=== PATIENT | male | born 1970 | race African-American/Black ===

== ENCOUNTER 2019-10-13 00:26 | Inpatient (IN) | payer MEDICAID ==
[~2019-10-13] VITALS: Ht 188 cm; Wt 82.6 kg
[2019-10-13] MEDS ORDERED: HYDROCODONE/APAP 5-325MG TABLET PO ONE (01:30)
[2019-10-13] MEDS ORDERED: HYDROCODONE/APAP 5-325MG TABLET ONE (01:31)
[2019-10-13 01:45] LABS: CREATININE 0.9 mg/dL (0.6-1.3); POTASSIUM 3.5 mmol/L (3.5-5.1)
[2019-10-13 01:50] LABS: BILIRUBIN,DIRECT 0.1 mg/dL (0.0-0.2); BILIRUBIN,TOTAL 0.5 mg/dL (0.2-1.0); TOTAL PROTEIN, SERUM 6.3 g/dL (6.4-8.2)
[2019-10-13 01:59] LABS: BASOPHILS % (AUTO) 0.4 % (0.0-2.0); EOSINOPHILS # (AUTO) 0.1 K/uL (0.0-0.7); EOSINOPHILS % (AUTO) 0.9 % (0.0-7.0); HEMATOCRIT 36.2 % (36.7-47.1); HEMOGLOBIN 11.8 g/dL (12.5-16.3); LYMPHOCYTES # (AUTO) 1.3 K/uL (20.0-40.0); LYMPHOCYTES % (AUTO) 15.5 % (20.5-51.5); MEAN CORPUSCULAR HEMOGLOBIN 27.3 uug (23.8-33.4); MEAN CORPUSCULAR HGB CONC 33 g/dL (32.5-36.3); MEAN CORPUSCULAR VOLUME 83.7 fL (73.0-96.2); MONOCYTES # (AUTO) 0.6 K/uL (2.0-10.0); MONOCYTES % (AUTO) 6.6 % (0.0-11.0); NEUTROPHILS # (AUTO) 6.6 K/uL (1.8-8.9); NEUTROPHILS % (AUTO) 76.6 % (38.5-71.5); PLATELET COUNT (AUTO) 236 K/uL (152-348); RED BLOOD CELL COUNT(AUTO) 4.33 MIL/uL (4.06-5.63); WHITE BLOOD COUNT (AUTO) 8.6 K/uL (3.6-10.2)
--- NOTE | 2019-10-13 03:07 | NUR ---
EPIC paged for panel call.
--- NOTE | 2019-10-13 03:19 | NUR ---
Pt. admitted to Med/Surg , under care of Charito Randle NP. Diagnosis: Rectal Prolapse. Belongs List completed
[2019-10-13] MEDS ORDERED: ACETAMINOPHEN 325 MG TABLET PO PRN (03:30)
[2019-10-13] MEDS ORDERED: Z GUARD REMEDY PASTE 57 GM TUBE TOP PRN (03:30)
[2019-10-13] MEDS ORDERED: MAGNESIUM HYDROXIDE 30 ML LIQUID UDC PO PRN (03:30)
[2019-10-13] MEDS ORDERED: ONDANSETRON 4 MG/2 ML VIAL IV PRN (03:30)
--- NOTE | 2019-10-13 04:00 | NUR ---
RECEIVED PATIENT VIA GURNEY FROM ER. PATIENT IS A/O X4. LEFT THUMB SECURED WITH SPLINT/MANDEEP BANDAGE. NEURO-CHECKS WNL. PROLAPSED RECTUM NOTED, SCANT BLOOD NOTED ON DANNI. PATIENT C/O OF MODERATED PAIN. H/L INTACT AND PATENT, NOTED TO RIGHT AC #20 GAUGE. ORIENTED TO ROOM AND CALL LIGHT. CALL LIGHT IN REACH. ALL NEEDS ATTENDED. WILL CONTINUE TO MONITOR AND ASSESS.
[2019-10-13] MEDS: IV NS 1000 ML 1,000 ML IV PRN (04:15)
[2019-10-13] MEDS: HYDROCODONE/APAP 5-325MG TABLET PO PRN ×3 (04:22→17:01)
[2019-10-13 05:44] VITALS: BP 121/88
--- NOTE | 2019-10-13 06:26 | NUR ---
PATIENT ASLEEP IN BED. RESTING WELL. IVF INFUSING WELL. VS WNL. CALL LIGHT IN REACH. ALL NEEDS ATTENDED. WILL CONTINUE TO MONITOR. ALL NEEDS ATTENDED. WILL CONTINUE TO MONITOR.
[2019-10-13] MEDS: PANTOPRAZOLE SODIUM 40 MG TABLET.DR PO SCH (06:32)
--- NOTE | 2019-10-13 07:30 | NUR ---
RECEIVED PATIENT AWAKE ALERT AND ORIENTED STATED THAT HE FELT LIKE HE NEEDED TO MOVE HIS BOWEL BUT IS UNABLE WILL INFORM THE HYPERBARIC NURSE FOR MAY BE A LAXATIVE FOR HIM BECAUSE HIS CERRENT ORDER IS FOR HS ONLY CALL LIGHTS AND HIS PERSONAL BELONGINGS PLACED WITHIN EASY REACH WILL CONTINUE TO OBSERVE
--- NOTE | 2019-10-13 10:00 | NUR ---
IV SITE OUT PATIENT STATED ACCIDENTLY PULLED OUT BUT REFUSED TO HAVE IT REINSERTED AT THIS TIME.
[2019-10-13] MEDS: MAGNESIUM HYDROXIDE 30 ML LIQUID UDC PO PRN (11:44)
--- NOTE | 2019-10-13 11:45 | NUR ---
PATIENT C/O PAIN AND STILL UNABLE TO MOVE HIS BOWELS AND HAVING LOTS OF PAIN MEDICATED WITH MILK OF MAG AND NORCO ORDERED DR DUNNE NOTIFIED STATED THAT HE CALLED DR RAMA COLLIER TO SEE HIM TODAY
[2019-10-13 13:00] VITALS: BP 132/94
[2019-10-13 16:00] VITALS: BP 142/95
--- NOTE | 2019-10-13 16:00 | NUR ---
PATIENT FINALLY ALLOWED ME TO REINSERT HIS IV SITED REINSERTED TO HIS RIGHT UPPER ARM WITH GAUGE 20 WITH ONE ATTEMPT AND CONTINUED WITH HIS IVF ORDERED.
--- NOTE | 2019-10-13 17:00 | NUR ---
MEDICATED FOR PAIN WITH NORCO STILL C/O RECTAL PAIN WITH RECTAL PROLAPSE STILL VISIBLE WITH SOME BLEEDING AWAITING FOR GI TO SEE PATIENT TONITE PER DR DUNNE.
[2019-10-13] MEDS ORDERED: MORPHINE SULFATE 2 MG/1 ML DISP.SYRIN IV PRN (17:45)
--- NOTE | 2019-10-13 18:00 | NUR ---
MEDICATION IS HELPFUL ORDERED MADE COMFORTABLE AND WILL CONTINUE TO OBSERVE.
--- NOTE | 2019-10-13 19:00 | NUR ---
PATIENT ALERT ORIENTED, NO SOB NO CHEST PAIN. CONT ON PAIN MANAGEMENT R THUMB, PATIENT ABLE TO USE TOILET FOR BOWEL AND BLADDER ELIMINATIONS, CONT TO MONITOR.
[2019-10-13 19:48] VITALS: BP 121/85
[2019-10-14] MEDS: IV NS 1000 ML 1,000 ML IV PRN (04:20)
[2019-10-14 05:27] VITALS: BP 137/97
--- NOTE | 2019-10-14 05:49 | NUR ---
PATIENT ALERT ORIENTED, NO SOB NO CHEST PAIN. PATIENT DENIES PAIN AT THIS TIME. PATIENT HAVE SLIGHT BLEEDING IN PROLAPSE RECTUM WHEN PATIENT DEFACATE. PATIENT SHOWN TO STAFF A PIECE OF LOOK LIKE SKIN TISSUE CAME FROM THE RECTAL PROLAPSE, PATIENT HAS NO FURTHER BLEEDING NOTED. TAUGHT PATIENT TO KEEP AFFTECTED AREA CLEAN AND MOIST ALL THE TIME, PATIENT STATED THAT AFFECTED SITE WAS ALWAYS WET, CONT TO MONITOR.
[2019-10-14] MEDS: PANTOPRAZOLE SODIUM 40 MG TABLET.DR PO SCH ×2 (06:24→08:34)
[2019-10-14 06:34] LABS: BASOPHILS % (AUTO) 0.6 % (0.0-2.0); EOSINOPHILS % (AUTO) 0.6 % (0.0-7.0); HEMATOCRIT 35.1 % (36.7-47.1); HEMOGLOBIN 11.5 g/dL (12.5-16.3); LYMPHOCYTES # (AUTO) 1.3 K/uL (20.0-40.0); LYMPHOCYTES % (AUTO) 15.7 % (20.5-51.5); MEAN CORPUSCULAR HEMOGLOBIN 27.1 uug (23.8-33.4); MEAN CORPUSCULAR HGB CONC 33 g/dL (32.5-36.3); MEAN CORPUSCULAR VOLUME 82.8 fL (73.0-96.2); MONOCYTES # (AUTO) 0.4 K/uL (2.0-10.0); MONOCYTES % (AUTO) 5.4 % (0.0-11.0); NEUTROPHILS # (AUTO) 6.3 K/uL (1.8-8.9); NEUTROPHILS % (AUTO) 77.7 % (38.5-71.5); PLATELET COUNT (AUTO) 244 K/uL (152-348); RED BLOOD CELL COUNT(AUTO) 4.24 MIL/uL (4.06-5.63); WHITE BLOOD COUNT (AUTO) 8.1 K/uL (3.6-10.2)
[2019-10-14 06:43] LABS: CREATININE 1.2 mg/dL (0.6-1.3); MAGNESIUM 1.9 mg/dL (1.8-2.4); POTASSIUM 3.5 mmol/L (3.5-5.1)
--- NOTE | 2019-10-14 06:45 | NUR ---
PATIENT WAS OFFERED TO HELP HIM MOISTENED HIS RECTAL PROLAPSE BUT PATIENT REFUSED, STATED "IT'S ALWAYS WET ANYWAY", PATIENT STILL HAS SLIGHT BLEEDING ON PROLAPSE RECTUM WHEN GOING TO BATHROOM, CONT TO MONITOR.
[2019-10-14 06:52] LABS: THYROID STIMULATING HORMONE 2.952 mIU/mL (0.358-3.740)
--- NOTE | 2019-10-14 08:00 | NUR ---
RECEIVED PT RESTING COMFORTABLY IN BED SUPINE. NO ACUTE DISTRESS OR SOB NOTED. PT'S PAIN MANAGED WITH MEDICATION. CALL LIGHT WITHIN REACH. BED LOCKED AND IN LOW POSITION. WILL CONTINUE TO MONITOR FOR SAFETY AND COMFORT.
--- NOTE | 2019-10-14 09:20 | NUR ---
DR ONTIVEROS WAS CALLED AND REMINDED OF GI CONSULT. DR ACKNOWLEDGES PT. DR STATED HE WILL BE IN THIS AFTERNOON FOR EVAL AND CONSULT.
[2019-10-14] MEDS: DOCUSATE SODIUM 250 MG CAPSULE PO SCH ×2 (10:12→20:22)
--- NOTE | 2019-10-14 10:28 | NUR ---
DR RODRIGUEZ WAS CONTACTED DUE TO PT'S PROGRESSIVELY INCREASING RECTAL PAIN. DR RODRIGUEZ ORDERED TO DC MORPHINE AND GIVE DILAUDID.
--- NOTE | 2019-10-14 10:45 | NUR ---
PT REFUSES DILAUDID AT THIS TIME. PAIN IS 0. PT STATED THAT HE DID NOT COME TO THE HOSPITAL TO TAKE DRUGS.
[2019-10-14 11:46] VITALS: BP 115/86
--- NOTE | 2019-10-14 12:00 | NUR ---
PT RESTING IN BED. PT SEEMS AGITATED. PT DENIES PAIN AT THIS TIME. NO ACUTE DISTRESS OR SOB NOTED. PT STATES FEELING WELL. ANXIOUSLY AWAITING ARRIVAL OF DR ONTIVEROS. WILL CONTINUE TO MONITOR.
--- NOTE | 2019-10-14 15:40 | NUR ---
PT REFUSED PICTURES. PT STATED HE DOES NOT WANT TO BE ON DISPLAY. EXPLAINED THAT THIS IS PRIVATE INFORMATION WHICH WILL ONLY BE SEEN BY STAFF INVOLVED.
[2019-10-14 16:00] VITALS: BP 132/95
--- NOTE | 2019-10-14 16:00 | NUR ---
DR ONTIVEROS EVALUATED PT. DR ONTIVEROS TO REPORT EVALUATION TO DR RODRIGUEZ. NO NEW ORDERS AT THIS TIME.
[2019-10-14] MEDS: MAGNESIUM HYDROXIDE 30 ML LIQUID UDC PO PRN (16:37)
[2019-10-14] MEDS: HYDROMORPHONE 1 MG/1 ML DISP.SYRIN IV PRN (16:41)
--- NOTE | 2019-10-14 18:00 | NUR ---
PT RESTING IN BED. NO ACUTE DISTRESS OR SOB NOTED. PT'S PAIN MANAGED WITH MEDICATION. DR ONTIVEROS EVALUATED PT AND WILL COMMUNICATE WITH DR RODRIGUEZ. NO NEW ORDERS AT THIS TIME. NO ACUTE DISTRESS OR SOB NOTED. BED LOCKED AND IN LOW POSITION. WILL ENDORSE TO INCOMING SHIFT.
--- NOTE | 2019-10-14 19:15 | NUR ---
Received patient in bed, resting. AO x 3; verbalizes pain level of 7 but refuses to take pain medication. IV in ADOLFO patent and intact. Immediate needs attended. Safety protocols in place. Will continue to monitor patient.
[2019-10-14 19:58] VITALS: BP 141/101
[2019-10-14] MEDS ORDERED: MIRALAX 17 GM POWD.PACK PO PRN (22:30)
[2019-10-15] MEDS: IV NS 1000 ML 1,000 ML IV PRN (03:23)
[2019-10-15 05:00] VITALS: BP 131/94
[2019-10-15] MEDS: HYDROMORPHONE 1 MG/1 ML DISP.SYRIN IV PRN (05:13)
--- NOTE | 2019-10-15 07:08 | NUR ---
NO ACUTE CHANGE IN PATIENT CONDITION THROUGHOUT SHIFT. PATIENT STATED HE "WAS ABLE TO PUSH RECTUM BACK INSIDE". AFTER THAT, PATIENT REQUESTED PAIN MEDICATION AND PATIENT WAS MEDICATED WITH DILAUDID. VITAL SIGNS WITHIN NORMAL. IMMEDIATE NEEDS ATTENDED WILL ENDORSE ACCORDINGLY.
[2019-10-15] MEDS: DOCUSATE SODIUM 250 MG CAPSULE PO SCH (08:54)
--- NOTE | 2019-10-15 08:58 | NUR ---
PATIENT IS IN BED AWAKE ALERT AND ORIENTED DENIES PAIN OR DISCOMFORTS AT THIS TIME ON ROOM AIR WITH NO SHORTNESS OF BREATH AT THIS TIME RECTAL PROLAPSE IS NOT VISIBLE TO THE OUTSIDE AT THIS TIME PATIENT STATED THAT HE PUSHED IT IN DR DUNNE AWARE CALL LIGHTS AND ALL OF HIS PERSONAL BELONGINGS ARE WITHIN EASY REACH MADE COMFORTABLE AND WILL CONTINUE TO OBSERV
[2019-10-15 11:30] VITALS: BP 118/80
--- NOTE | 2019-10-15 13:16 | NUR ---
WOUND CARE CONSULT: PT PRESENTS WITH ORTHO DRESSING WHICH IS DRY AND INTACT TO LEFT THUMB/ARM, PRESENT ON ADMISSION. DEFER TO MD/ORTHO. PT NO LONGER HAS RECTAL PROLAPSE VISIBLE. PT IS AMBULATORY AND CONTINENT. WILL SEE PRN. CURRENT BAKARI SCORE IS 20.
--- NOTE | 2019-10-15 14:59 | NUR ---
PATIENTS MOTHER ALEIDA IS HERE STATED HERE TO PICK PATIENT UP INFORMED HER THAT CURRENTLY WE DO NOT HAVE A DISCHARGE ORDER SO DR DUNNE WAS NOTIFIED THAT PATIENT IS READY TO LEAVE AND HE STATED [facility] WILL FINISH THE DISCHARGE PAPER WORK SOON POSSIBLE.PATIENTS JOEY SHIN STATED NOT WILLING TO WAIT HAS TO LEAVE SO THE PLAN IS THAT THE PATIENT WILL RETURN HOME BY BUS HAS HIS BIKE HERE WILL HANG THE BIKE ON THE BUS HE DID WHEN HE CAME HERE ON ADMISSION
[2019-10-15 15:30] VITALS: BP 128/95
--- NOTE | 2019-10-15 15:46 | NUR ---
DISCHARGE ORDER NOTED AWAITING FOR DR DUNNE TO FINALISE THE DISCHARGE PROCESS INFORMATION FOR [facility] [phone] PATIENT INSTRUCTED TO CALL FOR A FOLLOW UP WHEN HE GETS HOME AND HE EXPRESSED UNDERSTANDING.
[2019-10-15] MEDS ORDERED: HYDR-3326 PO (16:43)
[2019-10-15] MEDS ORDERED: POLY17PO4 PO (16:43)
[2019-10-15] MEDS ORDERED: DOCU250C14 PO (16:43)
[2019-10-15] MEDS ORDERED: FERR325T28 PO (16:47)
--- NOTE | 2019-10-15 18:15 | NUR ---
PATIENT DISCHARGED WITH DISCHARGE INSTRUCTIONS AND ALL OF HIS PERSONAL BELONGINGS INCLUDING HIS BIKE IN SATISFACTORY CONDITION PATIENT INSTRUCTED TO CALL FOR A FOLLOW UP APPOINTMENT WITH HIS INSURANCE CONTACTED [employer] AND ALSO SEE HIS PRIMARY DOCTOR WITHIN THE NEXT ONE WEEK AND HE EXPRESSED UNDERSTANDING.THE SPLINT ON HIS LEFT THUMB HAS AN MANDEEP WRAP WHICH WAS DIRTY SO THE MANDEEP BANDAGE CHANGED AT THIS TIME.PATIENT ASSISTED TO OUTSIDE [facility] WITH HIS BIKE AND A TOKEN FOR THE BUS.
== END 2019-10-15 18:15 | disposition home or self-care (01) | DRG 254 ==
LOC: ER 00:26 → MEDSURG3 03:26
PROVIDERS: ADMIT Registered Nurse; ATTEND Internal Medicine
PROC: 2W3FX1Z Immobilization of Left Hand using Splint (ICD-10-PCS; principal; 2019-10-13)
DX: K62.3 Rectal prolapse (principal); D50.9 Iron deficiency anemia, unspecified; K59.00 Constipation, unspecified; M81.0 Age-related osteoporosis without current pathological fracture; Z72.0 Tobacco use; Z98.890 Other specified postprocedural states; S62.20 Unspecified fracture of first metacarpal bone; W19.XXXD Unspecified fall, subsequent encounter
CPT/HCPCS: 36415; 73130; 83550; 83735; 84100; 84443; 85025; 85730; A4663; G0378; J1170; J2270; J7030

== ENCOUNTER 2019-10-19 00:24 | Emergency (ER) | payer MEDICAID ==
[~2019-10-19] VITALS: Ht 188 cm; Wt 81.6 kg
[~2019-10-19 00:24] MED LIST: DOCU250C14 PO; FERR325T28 PO; HYDR-3326 PO; POLY17PO4 PO
[2019-10-19] MEDS ORDERED: HYDROCODONE/APAP 10-325 MG TABLET ONE (01:22)
--- NOTE | 2019-10-19 01:29 | NUR ---
Patient discharged to home in stable conditon. Written and verbal after care instructions given. Patient verbalizes understanding of instructions. Walked out of Er with no distress noted.
[2019-10-19 01:30] VITALS: BP 148/92
[2019-10-19] MEDS ORDERED: HYDROCODONE/APAP 10-325 MG TABLET PO ONE (01:30)
== END 2019-10-19 01:31 | disposition home or self-care (01) ==
LOC: ER 00:31
DX: K62.3 Rectal prolapse (principal); Z79.899 Other long term (current) drug therapy; Z59.0 Homelessness
CPT/HCPCS: A4663